=== PATIENT | male | born 1980 | race Two or more races ===

== ENCOUNTER 2024-03-27 17:34 | Emergency (ER) | payer MEDICAID ==
[~2024-03-27] VITALS: Ht 180.3 cm; Wt 72.7 kg
[2024-03-27 17:36] VITALS: BP 114/77; PULSE 76; RESP 18; TEMP 98.2; O2SAT 99
[2024-03-27] MEDS: KETOROLAC TROMETHAMINE 30 MG/ML VIAL IVP ONE (20:24)
[2024-03-27] MEDS: ONDANSETRON HCL 4 MG/2 ML VIAL IVP ONE (20:24)
[2024-03-27] MEDS: HYDROmorphone HCL 2 MG/ML SYRINGE IVP ONE (20:25)
[2024-03-27] MEDS: METHOCARBAMOL 100 MG/ML 10 ML VIAL IVP ONE (20:34)
[2024-03-27] MEDS ORDERED: METH-812 PO (23:34)
[2024-03-27] MEDS ORDERED: IBUP-1554 PO (23:34)
[2024-03-27] MEDS ORDERED: ACET-66 PO (23:34)
== END 2024-03-28 00:39 | disposition home or self-care (01) ==
LOC: EMS 17:34
DX: S39.012A Strain of muscle, fascia and tendon of lower back, initial encounter (principal); F17.210 Nicotine dependence, cigarettes, uncomplicated; X58.XXXA Exposure to other specified factors, initial encounter; Y93.89 Activity, other specified; Y92.89 Other specified places as the place of occurrence of the external cause; Y99.8 Other external cause status
CPT/HCPCS: 99284; 96374; 96375; 72100; J1171; J1885; J2405; J2800